=== PATIENT | male | born 1990 | race Caucasian/White ===

== ENCOUNTER 2021-07-07 13:54 | Emergency (ER) | payer OTHER ==
[~2021-07-07] VITALS: Ht 170.2 cm; Wt 86.7 kg
[2021-07-07 15:29] VITALS: BP 114/66
== END 2021-07-07 15:36 | disposition home or self-care (01) ==
LOC: M ED 13:54
DX: R05.9 Cough, unspecified (principal); J02.9 Acute pharyngitis, unspecified; Z87.09 Personal history of other diseases of the respiratory system
CPT/HCPCS: 87880; 99283; U0003